=== PATIENT | male | born 1985 | race Two or more races ===

== ENCOUNTER 2018-08-28 12:52 | Emergency (ER) | payer OTHER ==
[~2018-08-28] VITALS: Ht 175.3 cm; Wt 54.9 kg
== END 2018-08-28 14:21 | disposition home or self-care (01) ==
LOC: ER 12:52
DX: S61.226A Laceration with foreign body of right little finger without damage to nail, initial encounter (principal); W25.XXXA Contact with sharp glass, initial encounter; Y93.89 Activity, other specified; Y92.89 Other specified places as the place of occurrence of the external cause; Y99.8 Other external cause status

== ENCOUNTER 2023-04-01 13:30 | Emergency (ER) | payer OTHER ==
[~2023-04-01] VITALS: Ht 170.2 cm; Wt 59.0 kg
== END 2023-04-01 16:55 | disposition home or self-care (01) ==
LOC: ER
DX: H61.22 Impacted cerumen, left ear (principal)

== ENCOUNTER 2023-04-10 11:56 | Emergency (ER) | payer OTHER ==
[~2023-04-10] VITALS: Ht 172.7 cm; Wt 59.0 kg
== END 2023-04-10 14:08 | disposition home or self-care (01) ==
LOC: ER 11:57
DX: H60.92 Unspecified otitis externa, left ear (principal)